=== PATIENT | female | born 1970 | race Caucasian/White ===

== ENCOUNTER 2023-07-20 07:41 | Day surgery (SDC) | payer OTHER ==
[2023-07-18 15:21] VITALS: BMI 25.8
[2023-07-20] MEDS ORDERED: LIDOCAINE HCL/PF 2% SDV 5ML VIAL ONE (07:46)
[2023-07-20] MEDS ORDERED: PROPOFOL 120 ML ONE (07:46)
[2023-07-20 08:00] VITALS: TEMP 96.6
[2023-07-20 09:16] VITALS: RESP 20
[2023-07-20 09:18] VITALS: BP 90/54; PULSE 68
== END 2023-07-20 09:05 | disposition home or self-care (01) ==
LOC: FASU-ENDO 07:41
PROVIDERS: ATTEND Internal Medicine Gastroenterology
PROC: 0DJD8ZZ Inspection of Lower Intestinal Tract, Via Natural or Artificial Opening Endoscopic (ICD-10-PCS; principal; 2023-07-20 08:14)
DX: Z12.11 Encounter for screening for malignant neoplasm of colon (principal)